=== PATIENT | female | born 1985 | race Caucasian/White ===

== ENCOUNTER 2019-03-29 10:09 | Emergency (ER) | payer OTHER ==
[~2019-03-29] VITALS: Ht 167.6 cm; Wt 83.9 kg
[2019-03-29 10:26] VITALS: BP_SYST 125
--- NOTE | 2019-03-29 10:26 | NUR ---
Patient to ER bed 5 to gown for evaluation. Side rails up. Report given to Vita WHITFIELD.
--- NOTE | 2019-03-29 10:40 | NUR ---
KEATON Juan at bedside examining patient.
--- NOTE | 2019-03-29 10:40 | NUR ---
pt arrives from home with c/o a productive cough x 3 days. Pt is currently afebrile. Pt is also very anxious at the moment, states she takes anti anxiety meds.
[2019-03-29] MEDS ORDERED: ALPRAZolam 0.25 MG TABLET PO ONE (10:45)
[2019-03-29] MEDS ORDERED: IPRATROPIUM/ALBUTEROL SULFATE 3 ML AMPUL.NEB (DUONEB) INH ONE ×2 (10:45→11:15)
--- NOTE | 2019-03-29 10:50 | NUR ---
pt getting a breathing tx at the bedside.
--- NOTE | 2019-03-29 11:05 | NUR ---
pt getting a CXR at the bedside
--- NOTE | 2019-03-29 11:14 | NUR ---
pt is getting a second breathing tx at the bedside.
[2019-03-29] MEDS ORDERED: PREDNISONE 20 MG TABLET PO ONE (11:15)
[2019-03-29] MEDS ORDERED: PREDNISONE 20 MG TABLET ONE (11:25)
[2019-03-29] MEDS ORDERED: NACL 0.9% 1,000 ML IV ONE (11:30)
[2019-03-29 12:07] LABS: BASOPHILS # (AUTO) 0.1 K/uL (0.0-0.2); BASOPHILS % (AUTO) 1.4 % (0.0-2.0); EOSINOPHILS # (AUTO) 0.1 K/uL (0.0-0.4); EOSINOPHILS % (AUTO) 1.3 % (0.0-4.0); HEMATOCRIT 46.7 % (36-48); LYMPHOCYTES % (AUTO) 15.5 % (20.5-51.5); MEAN CORPUSCULAR HEMOGLOBIN 32 pg (27-31); MEAN CORPUSCULAR HGB CONC 34 % (32-36); MEAN CORPUSCULAR VOLUME 92 fL (79.0-98.0); MONOCYTES # (AUTO) 0.3 K/uL (0.0-1.0); MONOCYTES % (AUTO) 4.4 % (1.7-9.3); NEUTROPHILS # (AUTO) 4.9 K/uL (1.8-7.7); NEUTROPHILS % (AUTO) 77.4 % (40.0-70.0); PLATELET COUNT (AUTO) 144 K/uL (130-430); RED BLOOD CELL COUNT(AUTO) 5.06 MIL/uL (4.2-6.2); RED CELL DISTRIBUTION WIDTH 13.1 % (9.0-15.0); WHITE BLOOD COUNT (AUTO) 6.3 K/uL (4.8-10.8)
[2019-03-29 12:16] LABS: CALCIUM 9.3 mg/dL (8.4-11.0); CREATININE 0.8 mg/dL (0.55-1.30); POTASSIUM 3.6 mmol/L (3.5-5.1)
[2019-03-29 12:22] LABS: ALBUMIN 3.7 g/dL (3.4-4.8); TOTAL BILIRUBIN 0.4 mg/dL (0.0-1.0)
--- NOTE | 2019-03-29 12:26 | NUR ---
Pt resting at this time, no s/s of distress, blanket given to patient
[2019-03-29 12:50] VITALS: BP_SYST 110
--- NOTE | 2019-03-29 12:50 | NUR ---
Patient given written and verbal discharge instructions and verbalizes understanding. ER MD discussed with patient the results and treatment provided. Patient in stable condition. ID arm band removed. IV catheter removed intact and dressing applied, no active bleeding. Rx of Ativan, Azithromycin,Tessalon, Albuterol, Prenisone given. Patient educated on pain management and to follow up with PMD. Pain Scale 0/10. Opportunity for questions provided and answered. Medication side effect fact sheet provided.
== END 2019-03-29 12:50 | disposition home or self-care (01) ==
LOC: SED 10:09
DX: F41.9 Anxiety disorder, unspecified (principal); J40 Bronchitis, not specified as acute or chronic; R06.2 Wheezing; F32.9 Major depressive disorder, single episode, unspecified; F17.210 Nicotine dependence, cigarettes, uncomplicated; Z71.6 Tobacco abuse counseling
CPT/HCPCS: 36415; 71045; 80053; 85025; 94640; 99284; J7030; J7512; J7620

== ENCOUNTER 2019-07-02 23:43 | Emergency (ER) | payer OTHER ==
[~2019-07-02] VITALS: Ht 162.6 cm; Wt 81.6 kg
[2019-07-03 00:10] VITALS: BP_SYST 123
--- NOTE | 2019-07-03 00:10 | NUR ---
Pt ambulatory to bed 4 for evaluation
--- NOTE | 2019-07-03 00:10 | NUR ---
Pt c/o pelvic, lower back pain, and clear-white vaginal discharge with mild odor for the past 3 days. Denies dysuria.
--- NOTE | 2019-07-03 00:30 | NUR ---
Dr. Tejada at bedside.
[2019-07-03] MEDS ORDERED: KETOROLAC TROMETHAMINE 30 MG VIAL IM ONE (00:45)
--- NOTE | 2019-07-03 01:02 | NUR ---
Pt to [facility] via W/C.
[2019-07-03 01:04] LABS: BILIRUBIN,URINE NEGATIVE (NEGATIVE); BLOOD, URINE 1+ (NEGATIVE); CLARITY/URINE CLEAR (CLEAR); COLOR,URINE YELLOW (YELLOW); GLUCOSE,URINE NEGATIVE (NEGATIVE); KETONES,URINE TRACE (NEGATIVE); LEUKOCYTE ESTERASE ,URINE NEGATIVE (NEGATIVE); NITRITE, URINE NEGATIVE (NEGATIVE); PROTEIN URINE NEGATIVE (NEGATIVE); UROBILINOGEN,URINE 0.2 (0.2-1.0)
[2019-07-03 01:14] LABS: BACTERIA,URINE FEW /HPF (None Seen); WBC,URINE 0-3 /HPF (0-3)
--- NOTE | 2019-07-03 01:15 | NUR ---
Pt returns from [facility]. Verbalizes improvement in pain. No needs verbalized at this time.
[2019-07-03] MEDS ORDERED: HYDROcodone/ACETAMIN 5-325 MG TAB (NORCO/ VICODIN) PO ONE (01:30)
[2019-07-03 02:10] VITALS: BP_SYST 110
--- NOTE | 2019-07-03 02:10 | NUR ---
Patient given written and verbal discharge instructions and verbalizes understanding. ER MD discussed with patient the results and treatment provided. Patient in stable condition. ID arm band removed. Rx of Naprosyn and Macrobid given. Patient educated on pain management and to follow up with PMD. Pain Scale 2/10. Opportunity for questions provided and answered. Medication side effect fact sheet provided.
== END 2019-07-03 02:10 | disposition home or self-care (01) ==
LOC: SED 23:43
DX: R10.2 Pelvic and perineal pain (principal); R82.71 Bacteriuria; F41.9 Anxiety disorder, unspecified; F32.9 Major depressive disorder, single episode, unspecified
CPT/HCPCS: 76830; 76857; 81000; 81025; 96372; 99284; J1885